=== PATIENT | male | born 1940 | race African-American/Black ===

== ENCOUNTER 2022-04-05 10:24 | Inpatient (IN) | payer MEDICARE ==
--- NOTE | 2022-04-05 11:26 | Emergency Department Report ---
HPI - General Chief Complaint: Weakness Time Seen by Provider: 04/05/22 11:14 - [facility] HPI: Room 3 The patient is a 2-year-old male presenting with a chief complaint of weakness. The patient's son states that the patient has become progressively weaker over the past week. He states the patient complains of weakness in both legs but greatest in the right lower extremity. The patient was able to ambulate under his own power 1 week ago but now it is unable to do so. The patient fell last night to the ground secondary to his weakness but did not lose consciousness. Patient also complains of bilateral upper extremity weakness which is equal. Patient denies dysarthria or dysphagia. The patient was told he had a history of irregular heartbeat and was placed on a blood thinner however when he ran out of medication he never got it refilled. The son does not certain of the name of the blood thinner ED Past Medical Hx - Past Medical History Previous Medical History?: Yes Hx Hypertension: Yes Hx of Cancer: Yes (prostate) Additional medical history: "Irregular heartbeat" - Surgical History Additional Surgical History: Retro-orbital biopsy (patient had fungal infection behind the optic nerve). Prostate surgery - Family History Family history: no significant - Social History Smoking Status: Former Smoker (None x10 years) Substance Use Type: None ED Review of Systems ROS: Stated complaint: UANBLE TO WALK Other details as noted in HPI Constitutional: malaise Eyes: denies: eye pain ENT: denies: throat pain Respiratory: denies: shortness of breath Cardiovascular: denies: chest pain Endocrine: no symptoms reported Gastrointestinal: denies: abdominal pain, nausea, vomiting Genitourinary: denies: dysuria Musculoskeletal: denies: back pain Neurological: weakness, paresthesias. denies: headache Physical Exam - Physical Exam Vital Signs: Vital Signs 04/05/22 10:35 Temperature 99.8 F H Pulse Rate 96 H Respiratory 15 Rate Blood Pressure 129/75 [Left] O2 Sat by Pulse 96 Oximetry Physical Exam: GENERAL: The patient is well-developed well-nourished male lying on stretcher not appearing to be in acute distress. [] HEENT: Normocephalic. Atraumatic. Extraocular motions are intact. Patient has moist mucous membranes. NECK: Supple. Trachea midline CHEST/LUNGS: Clear to auscultation. There is no respiratory distress noted. HEART/CARDIOVASCULAR: Irregularly irregular. There is tachycardia. There is no gallop rub or murmur. ABDOMEN: Abdomen is soft, nontender. Patient has normal bowel sounds. There is no abdominal distention. SKIN: There is no rash. There is no edema. There is no diaphoresis. NEURO: The patient is awake, alert, and oriented. The patient is cooperative. Cranial nerves II through XII grossly intact. Patient has decreased sensation to light touch of the right lower extremity. Equal sensation to light touch b ilateral upper extremities. The patient is able to hold either upper extremity at 45 degree angle for 10-second count. Patient is able to hold either lower extremity at 30 degree angle for 5-second count the patient has normal speech. GCS 15 NIHSS= 1 MUSCULOSKELETAL: There is no evidence of acute injury. ED Course Vital Signs 04/05/22 10:35 Temperature 99.8 F H Pulse Rate 96 H Respiratory 15 Rate Blood Pressure 129/75 [Left] O2 Sat by Pulse 96 Oximetry ED Medical Decision Making - Lab Data Result diagrams: 04/05/22 11:34 04/05/22 11:34 Laboratory Tests 04/05/22 04/05/22 04/05/22 11:34 11:34 11:34 WBC 9.7 RBC 4.49 Hgb 13.7 Hct 41.9 MCV 93 MCH 31 MCHC 33 RDW 12.6 L Plt Count 364 Lymph % (Auto) 11.9 L [place] % (Auto) 6.7 Eos % (Auto) 2.1 Baso % (Auto) 0.7 Lymph # (Auto) 1.2 [place] # (Auto) 0.6 Eos # (Auto) 0.2 Baso # (Auto) 0.1 Seg Neutrophils % 78.6 H Seg Neutrophils # 7.6 PT 14.5 INR 1.02 APTT 34.3 Sodium 134 L Potassium 4.0 Chloride 97.6 L Carbon Dioxide 25 Anion Gap 15 BUN 15 Creatinine 1.1 Estimated GFR > 60 BUN/Creatinine Ratio 14 Glucose 164 H Calcium 8.9 Total Bilirubin 0.80 AST 129 H ALT 81 H Alkaline Phosphatase 154 H Total Creatine Kinase CK-MB (CK-2) CK-MB (CK-2) Rel Index Troponin T < 0.010 Total Protein 7.4 Albumin 2.6 L Albumin/Globulin Ratio 0.5 TSH Free T4 04/05/22 04/05/22 11:34 11:34 WBC RBC Hgb Hct MCV MCH MCHC RDW Plt Count Lymph % (Auto) [place] % (Auto) Eos % (Auto) Baso % (Auto) Lymph # (Auto) [place] # (Auto) Eos # (Auto) Baso # (Auto) Seg Neutrophils % Seg Neutrophils # PT INR APTT Sodium Potassium Chloride Carbon Dioxide Anion Gap BUN Creatinine Estimated GFR BUN/Creatinine Ratio Glucose Calcium Total Bilirubin AST ALT Alkaline Phosphatase Total Creatine Kinase 77 CK-MB (CK-2) 1.1 CK-MB (CK-2) Rel Index 1.4 Troponin T Total Protein Albumin Albumin/Globulin Ratio TSH 1.550 Free T4 1.20 - EKG Data -: EKG Interpreted by Me EKG shows normal: axis Rate: tachycardia - EKG Data When compared to previous EKG there are: previous EKG unavailable Interpretation: other (A. fib with RVR at 115 bpm) - Radiology Data Radiology results: report reviewed (Chest x-ray, CT head), image reviewed (Chest x-ray, CT head) interpreted by me: Chest x-ray-no definite focal infiltrates, no pneumothorax [address] [address] Cat Scan Report Signed Patient: CARMEN BLANCHARD MR#: [id number] : 1940 Acct:[id number] Age/Sex: 82 / M ADM Date: 04/05/22 Loc: ED Attending Dr: Ordering Physician: DANIEL ANDRES MD Date of Service: 04/05/22 Procedure(s): CT head/brain wo con Accession Number(s): [id number] cc: DANIEL ANDRES MD CT head/brain wo con INDICATION / CLINICAL INFORMATION: 82 years Male; Frequent falls. TECHNIQUE: Routine CT head without contrast. All CT scans at this location are performed using CT dose reduction for ALARA by means of automated exposure control. COMPARISON: None. FINDINGS: BRAIN / INTRACRANIAL CONTENTS: No acute hemorrhage, mass effect, midline shift, hydrocephalus, or acute, large territorial infarct. Mild cerebral and cerebellar atrophy. There are mild areas of decreased attenuation in the white matter of the cerebral hemispheres. These are nonspecific findings and may be related to microangiopathy (hypertension, diabetes, atherosclerosis), given the patient's age. It might be difficult to evaluate for small areas of ischemia without diffusion imaging by MRI. CRANIOCERVICAL JUNCTION: No significant abnormality. ORBITS: No significant abnormality of visualized orbits. SINUSES / MASTOIDS: Mild mucosal thickening is identified in the left maxillary sinus. The remaining sinuses and mastoid air cells are clear. ADDITIONAL FINDINGS: Atherosclerotic disease is seen in the anterior and posterior circulation. IMPRESSION: 1. Mild volume loss and nonspecific chronic white matter changes. 2. Mild chronic left maxillary sinusitis. 3. No acute intracranial process identified. Signer Name: Darren Garnica Jr, MD Signed: 04/05/2022 1:08 PM Workstation Name: [id number] Transcribed By: TTR Dictated By: DARREN GARNICA JR, MD Electronically Authenticated By: DARREN GARNICA JR, MD Signed Date/Time: 04/05/22 1308 DD/ 1305 TD/TT: [facility] [address] [place] [address] XRay Report Signed Patient: CARMEN BLANCHARD MR#: [id number] : 1940 Acct:[id number] Age/Sex: 82 / M ADM Date: 04/05/22 Loc: ED Attending Dr: Ordering Physician: DANIEL ANDRES MD Date of Service: 04/05/22 Procedure(s): XR chest 1V ap Accession Number(s): [id number] cc: DANIEL ANDRES MD Fluoro Time In Minutes: CHEST 1 VIEW 04/05/2022 11:52 AM INDICATION / CLINICAL INFORMATION: Weakness. COMPARISON: None available. FINDINGS: SUPPORT DEVICES: None. HEART / MEDIASTINUM: No significant abnormality. LUNGS / PLEURA: Increased interstitial markings in the bilateral, right greater than left lung bases. No pneumothorax. ADDITIONAL FINDINGS: No significant additional findings. IMPRESSION: 1. Increased interstitial markings bilateral lung bases which nonspecific may represent atypical infectious process versus pulmonary edema versus interstitial lung disease. Signer Name: Mathew Matta DO Signed: 04/05/2022 12:28 PM Workstation Name: [id number] Transcribed By: NS Dictated By: MATHEW MATTA DO Electronically Authenticated By: MATHEW MATTA DO Signed Date/Time: 04/05/22 1228 DD/ TD/TT: - Differential Diagnosis A. fib not on anticoagulation, CVA, Critical care attestation.: If time is entered above; I have spent that time in minutes in the direct care of this critically ill patient, excluding procedure time. ED Disposition Clinical Impression: Atrial fibrillation, Right leg numbness, Weakness Disposition: ADMITTED INPATIENT Is pt being admited?: Yes Does the pt Need Aspirin: Yes Condition: Fair Time of Disposition: 13:24 (Care transferred to hospitalist (Dr. Farfan))
[2022-04-05 11:41] LABS: Basophils # (Auto) 0.1 K/mm3 (0.0-0.1); Basophils % (Auto) 0.7 % (0.0-1.8); Eosinophils # (Auto) 0.2 K/mm3 (0.0-0.4); Eosinophils % (Auto) 2.1 % (0.0-4.3); Hematocrit 41.9 % (35.5-45.6); Hemoglobin 13.7 gm/dl (11.8-15.2); Lymphocytes # (Auto) 1.2 K/mm3 (1.2-5.4); Lymphocytes % (Auto) 11.9 % (13.4-35.0); Mean Corpuscular HGB Conc 33 % (32-34); Mean Corpuscular Volume 93 fl (84-94); Monocytes # (Auto) 0.6 K/mm3 (0.0-0.8); Monocytes % (Auto) 6.7 % (0.0-7.3); Platelet Count 364 K/mm3 (140-440); Red Blood Count 4.49 M/mm3 (3.65-5.03); Red Cell Distribution Width 12.6 % (13.2-15.2)
[2022-04-05 11:53] LABS: INR 1.02 (0.87-1.13); Partial Thromboplastin Time 34.3 Sec. (24.2-36.6)
[2022-04-05 12:00] LABS: Creatine Kinase MB 1.1 ng/mL (0.0-4.0)
[2022-04-05 12:08] LABS: Alanine Aminotransferase 81 units/L (7-56); Albumin 2.6 g/dL (3.9-5); BUN/Creatinine Ratio 14; Blood Urea Nitrogen 15 mg/dL (9-20); Calcium 8.9 mg/dL (8.4-10.2); Hemolysis Index 11
[2022-04-05 12:13] LABS: Free T4 (Free Thyroxine) 1.2 ng/dL (0.76-1.46)
--- NOTE | 2022-04-05 12:33 | XRay Report ---
CHEST 1 VIEW 04/05/2022 11:52 AM INDICATION / CLINICAL INFORMATION: Weakness. COMPARISON: None available. FINDINGS: SUPPORT DEVICES: None. HEART / MEDIASTINUM: No significant abnormality. LUNGS / PLEURA: Increased interstitial markings in the bilateral, right greater than left lung bases. No pneumothorax. ADDITIONAL FINDINGS: No significant additional findings. IMPRESSION: 1. Increased interstitial markings bilateral lung bases which nonspecific may represent atypical infe ctious process versus pulmonary edema versus interstitial lung disease. Signer Name: Mathew Talley DO Signed: 04/05/2022 12:28 PM Workstation Name: [id number]
--- NOTE | 2022-04-05 13:12 | Cat Scan Report ---
CT head/brain wo con INDICATION / CLINICAL INFORMATION: 82 years Male; Frequent falls. TECHNIQUE: Routine CT head without contrast. All CT scans at this location are performed using CT dos e reduction for ALARA by means of automated exposure control. COMPARISON: None. FINDINGS: BRAIN / INTRACRANIAL CONTENTS: No acute hemorrhage, mass effect, midline shift, hydrocephalus, or acu te, large territorial infarct. Mild cerebral and cerebellar atrophy. There are mild areas of decreased attenuation in the white matter of the cerebral hemispheres. These are nonspecific findings and may be related to microangiopathy (hypertension, diabetes, atheroscleros is), given the patient's age. It might be difficult to evaluate for small areas of ischemia without d iffusion imaging by MRI. CRANIOCERVICAL JUNCTION: No significant abnormality. ORBITS: No significant abnormality of visualized orbits. SINUSES / MASTOIDS: Mild mucosal thickening is identified in the left maxillary sinus. The remaining sinuses and mastoid air cells are clear. ADDITIONAL FINDINGS: Atherosclerotic disease is seen in the anterior and posterior circulation. IMPRESSION: 1. Mild volume loss and nonspecific chronic white matter changes. 2. Mild chronic left maxillary sinusitis. 3. No acute intracranial process identified. Signer Name: Darren Garnica Jr, MD Signed: 04/05/2022 1:08 PM Workstation Name: [id number]
[2022-04-05] MEDS ORDERED: ASPIRIN 325 MG TAB PO ONE (13:23)
[2022-04-05] MEDS ORDERED: ACETAMINOPHEN 325 MG TAB PO PRN (13:34)
[2022-04-05] MEDS ORDERED: ALBUTEROL 2.5 MG/3 ML NEBU IH PRN (13:34)
[2022-04-05] MEDS ORDERED: ONDANSETRON 4 MG/2 ML INJ IV PRN (13:34)
[2022-04-05] MEDS ORDERED: HYDROmorphone 0.5 MG/0.5 ML INJ IV PRN (13:34)
[2022-04-05] MEDS ORDERED: METOCLOPRAMIDE 10 MG TAB PO PRN (13:34)
[2022-04-05] MEDS ORDERED: MAGNESIUM HYDROXIDE (MOM) ORAL LIQD UDC PO PRN (13:34)
[2022-04-05] MEDS ORDERED: PROMETHAZINE 25 MG RECT SUPP PR PRN (13:34)
[2022-04-05] MEDS ORDERED: oxyCODONE /ACETAMINOPHEN 5-325MG TAB PO PRN (13:34)
--- NOTE | 2022-04-05 13:37 | History and Physical Report ---
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 Patient has diminished cognition and is unable to provide detailed history. Patient history brought by EMS staff, ED staff, as well as the patient's son was at bedside during exam and interview. As per son the patient has experienced progressive weakness over the past 1 month with acutely worsening symptoms over the past week. Patient has experienced right-sided weakness with inability to ambulate without falling. EMS was notified and upon arrival the patient was found to be in distress with a focal neurologic deficit. A code stroke was called and the patient was transported to [facility] for further care and evaluation of the aforementioned symptoms. The patient was seen and evaluated emergency department. All lab and imaging studies reviewed. Patient found to have a focal neurologic deficit with symptoms consistent with CVA. The patient admitted to telemetry due to increased risk of worsening symptoms and for medical stabilization. Patient initiated on CVA protocol. No reports of fever, chills, chest pain, palpitation, adductive cough, skin rash, recent contact, known exposure to COVID-19. No prior admission for review. No medication listed at time of admission for reconciliation. Advanced care planning conducted in ED. Past History Past Medical History: atrial fib, cancer, hypertension, other (See HPI) Past Surgical History: Other (Prostate surgery, orbital biopsy) Social history: , lives with family. denies: smoking, alcohol abuse, prescription drug abuse Family history: hypertension Medications and Allergies Allergies Allergy/AdvReac Type Severity Reaction Status Date / Time No Known Allergies Allergy Verified 04/05/22 10:38 Active Meds: Active Medications Acetaminophen (Acetaminophen 325 Mg Tab) 650 mg PO Q4H PRN PRN Reason: Pain, Mild (1-3) Albuterol (Albuterol 2.5 Mg/3 Ml Nebu) 2.5 mg IH Q3HRT PRN PRN Reason: Shortness Of Breath Atorvastatin Calcium (Atorvastatin 40 Mg Tab) 40 mg PO QHS MARILU Bisacodyl (Bisacodyl 10 Mg Rect Supp) 10 mg NH QDAY PRN PRN Reason: Constipation Hydromorphone HCl (Hydromorphone 0.5 Mg/0.5 Ml Inj) 0.5 mg IV Q23H PRN PRN Reason: Pain , Severe (7-10) Magnesium Hydroxide (Magnesium Hydroxide (Mom) Oral Liqd Udc) 30 ml PO Q4H PRN PRN Reason: Constipation Metoclopramide HCl (Metoclopramide 10 Mg Tab) 10 mg PO Q6H PRN PRN Reason: Nausea And Vomiting Ondansetron HCl (Ondansetron 4 Mg/2 Ml Inj) 4 mg IV Q8H PRN PRN Reason: Nausea And Vomiting Oxycodone/Acetaminophen (Oxycodone /Acetaminophen 5-325mg Tab) 1 tab PO Q16H PRN PRN Reason: Pain, Moderate (4-6) Promethazine HCl (Promethazine 25 Mg Rect Supp) 25 mg NH Q6H PRN PRN Reason: Nausea And Vomiting Sodium Chloride (Sodium Chloride 0.9% 10 Ml Flush Syringe) 10 ml INJ PRN PRN PRN Reason: LINE FLUSH Review of Systems ROS unobtainable: due to mental status Exam - Constitutional Vitals: Temp Pulse Resp BP Pulse Ox 99.8 F H 96 H 14 129/75 98 04/05/22 10:35 04/05/22 10:35 04/05/22 12:52 04/05/22 10:35 04/05/22 12:52 General appearance: Present: mild distress - EENT Eyes: Present: PERRL ENT: clear oral mucosa, hearing decreased - Neck Neck: Present: supple, normal ROM - Respiratory Respiratory effort: normal Respiratory: bilateral: diminished - Cardiovascular Rhythm: irregularly irregular - Extremities Extremities: pulses symmetrical, No edema Peripheral Pulses: within normal limits - Abdominal General gastrointestinal: Present: soft, non-tender, non-distended, normal bowel sounds Male genitourinary: Present: normal - Integumentary Integumentary: Present: clear, warm, dry - Musculoskeletal Musculoskeletal: right sided weakness - Psychiatric Psychiatric: no intact judgment & insight, no memory intact, no cooperative - Neurologic Neurologic: CNII-XII intact, moves all extremities, no gait normal HEART Score - HEART Score Troponin: Troponin T < 0.010 ng/mL (0.00-0.029) 04/05/22 11:34 Results - Labs CBC & Chem 7: 04/05/22 11:34 04/05/22 11:34 Labs: Abnormal lab results 04/05/22 04/05/22 Range/Units 11:34 11:34 RDW 12.6 L (13.2-15.2) % Lymph % (Auto) 11.9 L (13.4-35.0) % Seg Neutrophils % 78.6 H (40.0-70.0) % Sodium 134 L (137-145) mmol/L Chloride 97.6 L (98-107) mmol/L Glucose 164 H (75-100) mg/dL AST 129 H (5-40) units/L ALT 81 H (7-56) units/L Alkaline Phosphatase 154 H (35-129) units/L Albumin 2.6 L (3.9-5) g/dL Assessment and Plan - Patient Problems (1) CVA (cerebral vascular accident) Current Visit: Yes Status: Acute Plan to address problem: CVA protocol: Antiplatelet therapy, CT scan head, physical therapy consulted, Occupational Therapy consulted, speech therapy consulted, statin therapy, echocardiogram, carotid Doppler, (2) Paroxysmal atrial fibrillation Current Visit: Yes Status: Acute Plan to address problem: Supportive care, patient noncompliant with therapeutic anticoagulation. Risk- benefit discussed.. (3) Hypertension Current Visit: Yes Status: Acute Qualifiers: Hypertension type: primary hypertension Qualified Code(s): I10 - Essential (primary) hypertension Plan to address problem: Monitor blood pressure every shift, continue medical management (4) Prostate cancer Current Visit: Yes Status: Acute Plan to address problem: Outpatient oncology follow-up. Outpatient urology follow-up. (5) DVT prophylaxis Current Visit: Yes Status: Acute Plan to address problem: SCD to bilateral lower extremities while in bed (6) Advance care planning Current Visit: Yes Status: Acute Plan to address problem: Disease education data, care plan discussed, diagnoses discussed, prognosis discussed, patient is full code. Patient family knowledges understanding and agreement with care plan, +30 minutes. (7) Preventative health care Current Visit: Yes Status: Acute Plan to address problem: Patient family counseled regarding risk factor reduction, home safety, outpatient follow-up with primary care physician for all age and risk factor appropriate screening test. +30 minutes.
[2022-04-05 14:52] LABS: Bacteria,Urine 1+ /HPF (Negative); Mucus,Urine FEW /HPF
[2022-04-05 14:56] LABS: Bilirubin,Urine Small (Negative); Blood,Urine Trace (Negative); Color,Urine Yellow (Yellow); PH,Urine 7.5 (5.0-7.0)
--- NOTE | 2022-04-05 16:45 | Vascular Lab Report ---
DUPLEX DOPPLER ULTRASOUND CAROTID, BILATERAL INDICATION / CLINICAL INFORMATION: stroke. COMPARISON: None available. FINDINGS: RIGHT CAROTID: Moderate carotid bifurcation and proximal ICA atherosclerosis. - PLAQUE ESTIMATE (%): > 50% - CCA velocity: 70 cm/sec. - ICA peak systolic velocity: 233 cm/sec. - ICA/CCA PSV Ratio: 3.33 Right Vertebral Artery: Antegrade flow. LEFT CAROTID: Mild/moderate carotid bifurcation and proximal ICA atherosclerosis. - PLAQUE ESTIMATE: < 50% - CCA velocity: 101 cm/sec. - ICA peak systolic velocity: 95 cm/sec. - ICA/CCA PSV Ratio: 0.94 Left Vertebral Artery: Antegrade flow. IMPRESSION: 1. Right Internal Carotid Artery: Approximately 70% diameter stenosis. Complete characterization by C TA neck may be warranted. 2. Left Internal Carotid Artery: Less than 50% diameter stenosis. Velocity criteria are extrapolated from diameter data as defined by the Society of Radiologists in Ul trasound Consensus Conference, Radiology 2003; 229;340-346. NO STENOSIS (NORMAL) * Plaque = none; ICA PSV < 125 cm/sec; ICA/CCA PSV Ratio < 2.0 <50% STENOSIS * Plaque < 50%; ICA PSV < 125 cm/sec; ICA/CCA PSV Ratio < 2.0 50-69% STENOSIS * Plaque > 50%; ICA PSV = 125-230 cm/sec; ICA/CCA PSV Ratio = 2.0-4.0 >70% BUT <100% STENOSIS * Plaque > 50%; ICA PSV > 230 cm/sec; ICA/CCA PSV Ratio > 4.0 NEAR OCCLUSION * Plaque = visible lumen; ICA PSV = high/low/none; ICA/CCA PSV Ratio = variable TOTAL OCCLUSION * Plaque = no lumen; ICA PSV = none; ICA/CCA PSV Ratio = N/A Signer Name: Orlando Mina MD Signed: 04/05/2022 4:41 PM Workstation Name: [id number]
--- NOTE | 2022-04-05 16:55 | Electrocardiograph Report ---
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
--- NOTE | 2022-04-06 10:48 | Electrocardiograph Report ---
[facility] Test Date: 2022-04-06 Test Time: 07:33:24 Pat Name: CARMEN BLANCHARD Department: Room: A487 1 Gender: M Manager Assembly: ZAYNAB : 1940 Requested By: DANIEL ANDRES Order Number: [id number] Reading MD: Alejandro Murillo Measurements Intervals [place] Rate: 103 P: [place]: QRS: 27 QRSD: 73 T: 31 QT: 350 QTc: 458 Interpretive Statements Atrial fibrillation Compared to ECG 04/05/2022 10:51:13 No significant changes Electronically Signed On 04-06-2022 10:47:53 EDT by Alejandro Murillo
--- NOTE | 2022-04-06 11:44 | Progress Note ---
Assessment and Plan Assessment and plan: 82 YO Male with Vascular Dementia, Cerebral Atherosclerosis, CaP, Atrial Fib not currently on therapeutic anticoagulation, HTN presents to ED for evaluation of progressive weakness over the past 1 month. Patient has experienced right- sided weakness with inability to ambulate without falling. Acute CVA Paroxysmal atrial fibrillation Hypertension Prostate cancer 04/06/2022. Follow-up echocardiogram and MRI. Neurology evaluation pending. PT/OT/ST. History Interval history: No new issues overnight Hospitalist Physical - Constitutional Vitals: Temp Pulse Resp BP Pulse Ox 97.9 F 97 H 16 103/65 96 04/06/22 07:48 04/06/22 07:48 04/06/22 07:48 04/06/22 07:48 04/06/22 09:11 General appearance: Present: mild distress - EENT Eyes: Present: PERRL, EOM intact ENT: hearing intact, clear oral mucosa, dentition normal - Neck Neck: Present: supple, normal ROM - Respiratory Respiratory effort: normal Respiratory: bilateral: CTA - Cardiovascular Rhythm: regular Heart Sounds: Present: S1 & S2. Absent: gallop, rub - Extremities Extremities: no ischemia, No edema, Full ROM - Abdominal General gastrointestinal: soft, non-tender, non-distended, normal bowel sounds - Integumentary Integumentary: Present: clear, warm, dry - Neurologic Neurologic: CNII-XII intact, moves all extremities HEART Score - HEART Score Troponin: Troponin T < 0.010 ng/mL (0.00-0.029) 04/05/22 11:34 Results - Labs CBC & Chem 7: 04/05/22 11:34 04/05/22 11:34 Labs: Laboratory Last Values WBC 9.7 K/mm3 (4.5-11.0) 04/05/22 11:34 RBC 4.49 M/mm3 (3.65-5.03) 04/05/22 11:34 Hgb 13.7 gm/dl (11.8-15.2) 04/05/22 11:34 Hct 41.9 % (35.5-45.6) 04/05/22 11:34 MCV 93 fl (84-94) 04/05/22 11:34 MCH 31 pg (28-32) 04/05/22 11:34 MCHC 33 % (32-34) 04/05/22 11:34 RDW 12.6 % (13.2-15.2) L 04/05/22 11:34 Plt Count 364 K/mm3 (140-440) 04/05/22 11:34 Lymph % (Auto) 11.9 % (13.4-35.0) L 04/05/22 11:34 [place] % (Auto) 6.7 % (0.0-7.3) 04/05/22 11:34 Eos % (Auto) 2.1 % (0.0-4.3) 04/05/22 11:34 Baso % (Auto) 0.7 % (0.0-1.8) 04/05/22 11:34 Lymph # (Auto) 1.2 K/mm3 (1.2-5.4) 04/05/22 11:34 [place] # (Auto) 0.6 K/mm3 (0.0-0.8) 04/05/22 11:34 Eos # (Auto) 0.2 K/mm3 (0.0-0.4) 04/05/22 11:34 Baso # (Auto) 0.1 K/mm3 (0.0-0.1) 04/05/22 11:34 Seg Neutrophils % 78.6 % (40.0-70.0) H 04/05/22 11:34 Seg Neutrophils # 7.6 K/mm3 (1.8-7.7) 04/05/22 11:34 PT 14.5 Sec. (12.2-14.9) 04/05/22 11:34 INR 1.02 (0.87-1.13) 04/05/22 11:34 APTT 34.3 Sec. (24.2-36.6) 04/05/22 11:34 Sodium 134 mmol/L (137-145) L 04/05/22 11:34 Potassium 4.0 mmol/L (3.6-5.0) 04/05/22 11:34 Chloride 97.6 mmol/L (98-107) L 04/05/22 11:34 Carbon Dioxide 25 mmol/L (22-30) 04/05/22 11:34 Anion Gap 15 mmol/L 04/05/22 11:34 BUN 15 mg/dL (9-20) 04/05/22 11:34 Creatinine 1.1 mg/dL (0.8-1.3) 04/05/22 11:34 Estimated GFR > 60 ml/min 04/05/22 11:34 BUN/Creatinine Ratio 14 % 04/05/22 11:34 Glucose 164 mg/dL (75-100) H 04/05/22 11:34 Calcium 8.9 mg/dL (8.4-10.2) 04/05/22 11:34 Total Bilirubin 0.80 mg/dL (0.1-1.2) 04/05/22 11:34 AST 129 units/L (5-40) H 04/05/22 11:34 ALT 81 units/L (7-56) H 04/05/22 11:34 Alkaline Phosphatase 154 units/L (35-129) H 04/05/22 11:34 Total Creatine Kinase 77 units/L (55-170) 04/05/22 11:34 CK-MB (CK-2) 1.1 ng/mL (0.0-4.0) 04/05/22 11:34 CK-MB (CK-2) Rel Index 1.4 (0-4) 04/05/22 11:34 Troponin T < 0.010 ng/mL (0.00-0.029) 04/05/22 11:34 Total Protein 7.4 g/dL (6.3-8.2) 04/05/22 11:34 Albumin 2.6 g/dL (3.9-5) L 04/05/22 11:34 Albumin/Globulin Ratio 0.5 % 04/05/22 11:34 TSH 1.550 mlU/mL (0.270-4.200) 04/05/22 11:34 Free T4 1.20 ng/dL (0.76-1.46) 04/05/22 11:34 Urine Color Yellow (Yellow) 04/05/22 13:42 Urine Turbidity Cloudy (Clear) 04/05/22 13:42 Urine pH 7.5 (5.0-7.0) H 04/05/22 13:42 Ur Specific [place] 1.010 (1.003-1.030) 04/05/22 13:42 Urine Protein 30 mg/dl mg/dL (Negative) 04/05/22 13:42 Urine Glucose (UA) Negative mg/dL (Negative) 04/05/22 13:42 Urine Ketones Negative mg/dL (Negative) 04/05/22 13:42 Urine Blood Trace (Negative) 04/05/22 13:42 Urine Nitrite Negative (Negative) 04/05/22 13:42 Ur Reducing Substances Not Reportable 04/05/22 13:42 Urine Bilirubin Small (Negative) 04/05/22 13:42 Urine Ictotest Not Reportable 04/05/22 13:42 Urine Urobilinogen 2.0 mg/dL (<2.0) 04/05/22 13:42 Ur Leukocyte Esterase Trace (Negative) 04/05/22 13:42 Urine WBC (Auto) 6.0 /HPF (0.0-6.0) 04/05/22 13:42 Urine RBC (Auto) 2.0 /HPF (0.0-6.0) 04/05/22 13:42 Urine Bacteria (Auto) 1+ /HPF (Negative) 04/05/22 13:42 Urine Mucus Few /HPF 04/05/22 13:42 Urine Yeast (Budding) 3+ /HPF 04/05/22 13:42 Hernadez/IV: Voiding Method Urinal Active Medications - Current Medications Current Medications: Generic Name Dose Route Start Last Admin Trade Name Freq PRN Reason Stop Dose Admin Acetaminophen 650 mg 04/05/22 13:34 Acetaminophen 325 Mg Tab PO Q4H PRN Pain, Mild (1-3) Albuterol 2.5 mg 04/05/22 13:34 Albuterol 2.5 Mg/3 Ml Nebu IH Q3HRT PRN Shortness Of Breath Atorvastatin Calcium 40 mg 04/05/22 22:00 04/05/22 22:26 Atorvastatin 40 Mg Tab PO 40 mg QHS MARILU Administration Bisacodyl 10 mg 04/05/22 13:34 Bisacodyl 10 Mg Rect Supp [place] QDAY PRN Constipation Hydromorphone HCl 0.5 mg 04/05/22 13:34 Hydromorphone 0.5 Mg/0.5 Ml Inj IV Q23H PRN Pain , Severe (7-10) Magnesium Hydroxide 30 ml 04/05/22 13:34 Magnesium Hydroxide (Mom) Oral Liqd Udc PO Q4H PRN Constipation Metoclopramide HCl 10 mg 04/05/22 13:34 Metoclopramide 10 Mg Tab PO Q6H PRN Nausea And Vomiting Ondansetron HCl 4 mg 04/05/22 13:34 Ondansetron 4 Mg/2 Ml Inj IV Q8H PRN Nausea And Vomiting Oxycodone/Acetaminophen 1 tab 04/05/22 13:34 Oxycodone /Acetaminophen 5-325mg Tab PO Q16H PRN Pain, Moderate (4-6) Promethazine HCl 25 mg 04/05/22 13:34 Promethazine 25 Mg Rect Supp [place] Q6H PRN Nausea And Vomiting Sodium Chloride 10 ml 04/05/22 13:34 04/05/22 22:26 Sodium Chloride 0.9% 10 Ml Flush Syringe IV 10 ml PRN PRN Administration LINE FLUSH
--- NOTE | 2022-04-06 14:52 | Consultation ---
History of Present Illness Consult date: 04/06/22 Reason for Consult: Weakness Chief complaint: Weakness History of present illness: 82 yo male with afib (on eliquis), htn, vascular dementia, cancer, who presents secondary to "progressive weakness over the past 1 month with exacerbation of weakness over the past 1 week. Per ED note, pt is noted with right-sided weak ness and has suffered some falls. Concern is raised in the ED for a possible CVA and patient is admitted for further workup. Patient is noted with limited speech at present and is not able to give a clinical history. Past History Past Medical History: atrial fib, cancer, hypertension, other (See HPI) Past Surgical History: Other (Prostate surgery, orbital biopsy) Social history: , lives with family. denies: smoking, alcohol abuse, prescription drug abuse Family history: hypertension Medications and Allergies Allergies Allergy/AdvReac Type Severity Reaction Status Date / Time No Known Allergies Allergy Verified 04/05/22 10:38 Active Meds: Active Medications Acetaminophen (Acetaminophen 325 Mg Tab) 650 mg PO Q4H PRN PRN Reason: Pain, Mild (1-3) Albuterol (Albuterol 2.5 Mg/3 Ml Nebu) 2.5 mg IH Q3HRT PRN PRN Reason: Shortness Of Breath Atorvastatin Calcium (Atorvastatin 40 Mg Tab) 40 mg PO QHS MARILU Last Admin: 04/05/22 22:26 Dose: 40 mg Bisacodyl (Bisacodyl 10 Mg Rect Supp) 10 mg IA QDAY PRN PRN Reason: Constipation Hydromorphone HCl (Hydromorphone 0.5 Mg/0.5 Ml Inj) 0.5 mg IV Q23H PRN PRN Reason: Pain , Severe (7-10) Magnesium Hydroxide (Magnesium Hydroxide (Mom) Oral Liqd Udc) 30 ml PO Q4H PRN PRN Reason: Constipation Metoclopramide HCl (Metoclopramide 10 Mg Tab) 10 mg PO Q6H PRN PRN Reason: Nausea And Vomiting Ondansetron HCl (Ondansetron 4 Mg/2 Ml Inj) 4 mg IV Q8H PRN PRN Reason: Nausea And Vomiting Oxycodone/Acetaminophen (Oxycodone /Acetaminophen 5-325mg Tab) 1 tab PO Q16H PRN PRN Reason: Pain, Moderate (4-6) Promethazine HCl (Promethazine 25 Mg Rect Supp) 25 mg IA Q6H PRN PRN Reason: Nausea And Vomiting Sodium Chloride (Sodium Chloride 0.9% 10 Ml Flush Syringe) 10 ml IV PRN PRN PRN Reason: LINE FLUSH Last Admin: 04/05/22 22:26 Dose: 10 ml Review of Systems ROS unobtainable: due to mental status Physical Examination - Vital Signs Vital Signs: Vital Signs Temp Pulse Resp BP Pulse Ox 99.8 F H 96 H 15 129/75 96 04/05/22 10:35 04/05/22 10:35 04/05/22 10:35 04/05/22 10:35 04/05/22 10:35 - Physical Exam Narrative exam: Gen: nad; Head: normocephalic; Eyes: no gaze deviation; no ptosis; ENT: normal vocalization; CVS: warm and well-perfused; Pulm: no respiratory distress; GI: appears non-distended; Ext: no cyanosis appreciated at distal extremities; Skin: no acute rash at distal extremities; Heme: no pathologic ecchymosis appreciated at distal extremities; Neuro: alert, oriented to name, not age, month; no dysarthria, moderate aphasia (vs language barrier), CN 2 - visual gómez appear grossly intact w/ visual tracking noted, CN 3, 4, 6 - EOMI, CN 5,7 - blinks spontaneously, CN 8 - hearing grossly intact, CN 9, 10, 11, 12 - pt cannot cooperate due to aphasia or language barrier; Motor - at least 3/5 at all exts; Sensory - moves all exts to tactile stimuli, Cerebellar - pt cannot cooperate due to aphasia or language barrier, Gait - deferred secondary to fall risk; NIHSS (1a.) Level of Consciousness:0 (1b.) LOC Questions:2 (1c.) LOC Commands:1 (2.) Best Gaze:0 (3.) Visual:1 (4.) Facial Palsy:0 (5a.) Motor Arm, Left:1 (5b.) Motor Arm, Right:1 (6a.) Motor Leg, Left:1 (6b.) Motor Leg, Right:1 (7.) Limb Ataxia:0 (8.) Sensory:0 (9.) Best Language:2 (10.) Dysarthria:0 (11.) Extinction and Inattention:1 NIHSS Total Score: 11 Results - Laboratory Findings CBC and BMP: 04/05/22 11:34 04/05/22 11:34 Abnormal Lab Findings: Abnormal Labs 04/05/22 04/05/22 04/05/22 11:34 11:34 13:42 RDW 12.6 L Lymph % (Auto) 11.9 L Seg Neutrophils % 78.6 H Sodium 134 L Chloride 97.6 L Glucose 164 H AST 129 H ALT 81 H Alkaline Phosphatase 154 H Albumin 2.6 L Urine pH 7.5 H Assessment and Plan 82 yo male with afib (on eliquis), htn, vascular dementia, cancer, who presents secondary to "progressive weakness over the past 1 month with exacerbation of weakness over the past 1 week. Per ED note, pt is noted with right-sided weakness and has suffered some falls. Concern is raised in the ED for a possible CVA and patient is admitted for further workup. 1. CVA (acute on subacute/chronic) - awaiting mr brain; continue eliquis / statin therapy for secondary stroke prophylaxis; pt/ot/st/swallow evaluation/monitoring; further workup based on mri findings. 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 3. Unsteady Gait w/ Falls (initial encounter) - pt/ot evaluation/monitoring for fall risk assesment especially in the setting of anticoagulation use. 4. Generalized Weakness - serologies ordered. 5. If imaging and labs are unremarkable, recommend further workup with transfer to a facility with bedside neurology. Erich Peter MD Neurology [id number]
--- NOTE | 2022-04-07 00:18 | Cat Scan Report ---
CTA NECK WITH CONTRAST 04/06/2022 INDICATION / CLINICAL INFORMATION: ICA stenosis, possible stroke. COMPARISON: None. TECHNIQUE: Routine CTA of the neck is performed. 3-D/MIP reformats were postprocessed. Percentage st enosis is determined by direct quantitative measurements of diseased internal carotid artery diameter compared with normal distal internal carotid artery reference segments or by criteria similar to ENRRIQUE CET where applicable. All CT scans at this location are performed using CT dose reduction for ALARA b y means of automated exposure control. CONTRAST: 100 ml of Omnipaque 350 FINDINGS: Carotid bifurcations: Right bifurcation, 70% stenosis. Left bifurcation, no evidence of stenosis. Carotid arteries: No significant abnormality. Cervical vertebral arteries: No significant abnormality. Aortic arch: No significant abnormality. None. 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
--- NOTE | 2022-04-07 00:20 | Cat Scan Report ---
CTA HEAD WITH CONTRAST 04/06/2022 HISTORY: ICA stenosis, possible stroke. COMPARISON: None. TECHNIQUE: All CT scans at this location are performed using CT dose reduction for ALARA by means of automated exposure control.. 3-D/MIP reformats postprocessed. Percentage stenosis is determined by d irect quantitative measurements of diseased internal carotid artery diameter compared with normal dis jamison internal carotid artery reference segments or by criteria similar to NASCET where applicable. CONTRAST: 100 ml of Isovue 370 FINDINGS: CTA HEAD: Intracranial vertebral arteries: No significant abnormality. Basilar artery: No significant abnormality. Posterior cerebral arteries: No significant abnormality. Intracranial internal carotid arteries: No significant abnormality. Anterior cerebral arteries: No significant abnormality. Middle cerebral arteries: No significant abnormality. Dural venous sinuses:Not optimally opacified. No significant abnormality. Additional findings: None. IMPRESSION: 1. No significant abnormality. Signer Name: Karan Patton MD Signed: 04/07/2022 12:15 AM Workstation Name: [id number]
[2022-04-07 06:22] LABS: Basophils % (Auto) 0.3 % (0.0-1.8); Eosinophils # (Auto) 0.2 K/mm3 (0.0-0.4); Eosinophils % (Auto) 1.5 % (0.0-4.3); Hematocrit 39.3 % (35.5-45.6); Hemoglobin 13.6 gm/dl (11.8-15.2); Lymphocytes # (Auto) 1.3 K/mm3 (1.2-5.4); Lymphocytes % (Auto) 12.3 % (13.4-35.0); Mean Corpuscular HGB Conc 35 % (32-34); Mean Corpuscular Volume 92 fl (84-94); Monocytes # (Auto) 0.9 K/mm3 (0.0-0.8); Monocytes % (Auto) 8.4 % (0.0-7.3); Platelet Count 362 K/mm3 (140-440); Red Cell Distribution Width 12.5 % (13.2-15.2)
[2022-04-07 06:34] LABS: Calcium 8.9 mg/dL (8.4-10.2)
--- NOTE | 2022-04-07 10:40 | Progress Note ---
Assessment and Plan Assessment and plan: 82 YO Male with Vascular Dementia, Cerebral Atherosclerosis, CaP, Atrial Fib not currently on therapeutic anticoagulation, HTN presents to ED for evaluation of progressive weakness over the past 1 month. Patient has experienced right- sided weakness with inability to ambulate without falling. Acute CVA Paroxysmal atrial fibrillation Hypertension Prostate cancer 04/06/2022. Follow-up echocardiogram and MRI. Neurology evaluation pending. PT/OT/ST. 04/07/2022. Neurology consulted and recommends MRI of brain. Continue Eliquis and statin therapy for paroxysmal atrial fibrillation and secondary prevention. PT recommends acute rehab but family wants to take patient home. pt/ot evaluation/monitoring for fall risk assesment especially in the setting of anticoagulation use. I have had discussion with PT to ensure safe discharge home History Interval history: No new issues overnight Hospitalist Physical - Constitutional Vitals: Temp Pulse Resp BP Pulse Ox 97.4 F L 98 H 16 101/55 95 04/07/22 07:12 04/07/22 07:12 04/07/22 03:27 04/07/22 07:12 04/07/22 07:12 General appearance: Present: mild distress - EENT Eyes: Present: PERRL, EOM intact ENT: hearing intact, clear oral mucosa, dentition normal - Neck Neck: Present: supple, normal ROM - Respiratory Respiratory effort: normal Respiratory: bilateral: CTA - Cardiovascular Rhythm: regular Heart Sounds: Present: S1 & S2. Absent: gallop, rub - Extremities Extremities: no ischemia, No edema, Full ROM - Abdominal General gastrointestinal: soft, non-tender, non-distended, normal bowel sounds - Integumentary Integumentary: Present: clear, warm, dry - Neurologic Neurologic: CNII-XII intact, moves all extremities HEART Score - HEART Score Troponin: Troponin T < 0.010 ng/mL (0.00-0.029) 04/05/22 11:34 Results - Labs CBC & Chem 7: 04/07/22 05:43 04/07/22 05:43 Labs: Laboratory Last Values WBC 10.7 K/mm3 (4.5-11.0) 04/07/22 05:43 RBC 4.30 M/mm3 (3.65-5.03) 04/07/22 05:43 Hgb 13.6 gm/dl (11.8-15.2) 04/07/22 05:43 Hct 39.3 % (35.5-45.6) 04/07/22 05:43 MCV 92 fl (84-94) 04/07/22 05:43 MCH 32 pg (28-32) 04/07/22 05:43 MCHC 35 % (32-34) H 04/07/22 05:43 RDW 12.5 % (13.2-15.2) L 04/07/22 05:43 Plt Count 362 K/mm3 (140-440) 04/07/22 05:43 Lymph % (Auto) 12.3 % (13.4-35.0) L 04/07/22 05:43 [place] % (Auto) 8.4 % (0.0-7.3) H 04/07/22 05:43 Eos % (Auto) 1.5 % (0.0-4.3) 04/07/22 05:43 Baso % (Auto) 0.3 % (0.0-1.8) 04/07/22 05:43 Lymph # (Auto) 1.3 K/mm3 (1.2-5.4) 04/07/22 05:43 [place] # (Auto) 0.9 K/mm3 (0.0-0.8) H 04/07/22 05:43 Eos # (Auto) 0.2 K/mm3 (0.0-0.4) 04/07/22 05:43 Baso # (Auto) 0.0 K/mm3 (0.0-0.1) 04/07/22 05:43 Seg Neutrophils % 77.5 % (40.0-70.0) H 04/07/22 05:43 Seg Neutrophils # 8.3 K/mm3 (1.8-7.7) H 04/07/22 05:43 PT 14.5 Sec. (12.2-14.9) 04/05/22 11:34 INR 1.02 (0.87-1.13) 04/05/22 11:34 APTT 34.3 Sec. (24.2-36.6) 04/05/22 11:34 Sodium 134 mmol/L (137-145) L 04/07/22 05:43 Potassium 4.0 mmol/L (3.6-5.0) 04/07/22 05:43 Chloride 97.5 mmol/L (98-107) L 04/07/22 05:43 Carbon Dioxide 26 mmol/L (22-30) 04/07/22 05:43 Anion Gap 15 mmol/L 04/07/22 05:43 BUN 14 mg/dL (9-20) 04/07/22 05:43 Creatinine 1.2 mg/dL (0.8-1.3) 04/07/22 05:43 Estimated GFR 58 ml/min 04/07/22 05:43 BUN/Creatinine Ratio 12 % 04/07/22 05:43 Glucose 120 mg/dL (75-100) H 04/07/22 05:43 Calcium 8.9 mg/dL (8.4-10.2) 04/07/22 05:43 Total Bilirubin 0.80 mg/dL (0.1-1.2) 04/05/22 11:34 AST 129 units/L (5-40) H 04/05/22 11:34 ALT 81 units/L (7-56) H 04/05/22 11:34 Alkaline Phosphatase 154 units/L (35-129) H 04/05/22 11:34 Total Creatine Kinase 77 units/L (55-170) 04/05/22 11:34 CK-MB (CK-2) 1.1 ng/mL (0.0-4.0) 04/05/22 11:34 CK-MB (CK-2) Rel Index 1.4 (0-4) 04/05/22 11:34 Troponin T < 0.010 ng/mL (0.00-0.029) 04/05/22 11:34 Total Protein 7.4 g/dL (6.3-8.2) 04/05/22 11:34 Albumin 2.6 g/dL (3.9-5) L 04/05/22 11:34 Albumin/Globulin Ratio 0.5 % 04/05/22 11:34 Prealbumin 0.060 g/L (0.200-0.400) L 04/06/22 17:58 Vitamin B12 1003 pg/mL (211-911) H 04/06/22 17:58 Folate 12.75 ng/mL (7.3-26.0) 04/06/22 17:58 TSH 2.440 mlU/mL (0.270-4.200) 04/06/22 17:58 Free T4 1.20 ng/dL (0.76-1.46) 04/05/22 11:34 Urine Color Yellow (Yellow) 04/05/22 13:42 Urine Turbidity Cloudy (Clear) 04/05/22 13:42 Urine pH 7.5 (5.0-7.0) H 04/05/22 13:42 Ur Specific [place] 1.010 (1.003-1.030) 04/05/22 13:42 Urine Protein 30 mg/dl mg/dL (Negative) 04/05/22 13:42 Urine Glucose (UA) Negative mg/dL (Negative) 04/05/22 13:42 Urine Ketones Negative mg/dL (Negative) 04/05/22 13:42 Urine Blood Trace (Negative) 04/05/22 13:42 Urine Nitrite Negative (Negative) 04/05/22 13:42 Ur Reducing Substances Not Reportable 04/05/22 13:42 Urine Bilirubin Small (Negative) 04/05/22 13:42 Urine Ictotest Not Reportable 04/05/22 13:42 Urine Urobilinogen 2.0 mg/dL (<2.0) 04/05/22 13:42 Ur Leukocyte Esterase Trace (Negative) 04/05/22 13:42 Urine WBC (Auto) 6.0 /HPF (0.0-6.0) 04/05/22 13:42 Urine RBC (Auto) 2.0 /HPF (0.0-6.0) 04/05/22 13:42 Urine Bacteria (Auto) 1+ /HPF (Negative) 04/05/22 13:42 Urine Mucus Few /HPF 04/05/22 13:42 Urine Yeast (Budding) 3+ /HPF 04/05/22 13:42 Syphilis IgG/IgM Ab Nonreactive (NonReactive) 04/06/22 17:58 Hernadez/IV: Voiding Method Urinal Active Medications - Current Medications Current Medications: Generic Name Dose Route Start Last Admin Trade Name Freq PRN Reason Stop Dose Admin Acetaminophen 650 mg 04/05/22 13:34 Acetaminophen 325 Mg Tab PO Q4H PRN Pain, Mild (1-3) Albuterol 2.5 mg 04/05/22 13:34 Albuterol 2.5 Mg/3 Ml Nebu IH Q3HRT PRN Shortness Of Breath Atorvastatin Calcium 40 mg 04/05/22 22:00 04/06/22 21:36 Atorvastatin 40 Mg Tab PO 40 mg QHS MARILU Administration Bisacodyl 10 mg 04/05/22 13:34 Bisacodyl 10 Mg Rect Supp [place] QDAY PRN Constipation Hydromorphone HCl 0.5 mg 04/05/22 13:34 Hydromorphone 0.5 Mg/0.5 Ml Inj IV Q23H PRN Pain , Severe (7-10) Magnesium Hydroxide 30 ml 04/05/22 13:34 Magnesium Hydroxide (Mom) Oral Liqd Udc PO Q4H PRN Constipation Metoclopramide HCl 10 mg 04/05/22 13:34 Metoclopramide 10 Mg Tab PO Q6H PRN Nausea And Vomiting Ondansetron HCl 4 mg 04/05/22 13:34 Ondansetron 4 Mg/2 Ml Inj IV Q8H PRN Nausea And Vomiting Oxycodone/Acetaminophen 1 tab 04/05/22 13:34 Oxycodone /Acetaminophen 5-325mg Tab PO Q16H PRN Pain, Moderate (4-6) Promethazine HCl 25 mg 04/05/22 13:34 Promethazine 25 Mg Rect Supp [place] Q6H PRN Nausea And Vomiting Sodium Chloride 10 ml 04/05/22 13:34 04/05/22 22:26 Sodium Chloride 0.9% 10 Ml Flush Syringe IV 10 ml PRN PRN Administration LINE FLUSH
--- NOTE | 2022-04-07 11:46 | Magnetic Resonance Report ---
MRI THORACIC SPINE WITHOUT AND WITH CONTRAST INDICATION / CLINICAL INFORMATION: transverse myelitis, epidural abscess Patient motion, best possible exam, repeated scans.. TECHNIQUE: Multisequence, multiplanar images of the thoracic spine were obtained. Contrast dose report: Clairscan: 14 mL administered intravenously. COMPARISON: None available. FINDINGS: LIMITATIONS: Patient motion artifact is limiting factor on this examination. This is most problematic on the sagittal STIR sequence. ALIGNMENT: Normal alignment overall. VERTEBRAE:No significant foci of abnormal bone marrow signal intensity are identified. THORACIC INTERVERTEBRAL DISCS: Disc height and signal intensity are fairly well preserved throughout the thoracic region. VISUALIZED SPINAL CORD: On sagittal STIR images heterogeneous signal intensity is seen within the cor d. This sequence is marred by patient motion artifact. No indication of intrinsic cord lesion is seen on sagittal T2-weighted scans. DEGENERATIVE FINDINGS: Anterior osteophyte formation is observed throughout the thoracic region. Ther e is no indication of disc extrusion, central canal stenosis or significant neuroforaminal narrowing. PARASPINAL SOFT TISSUES: No significant abnormality. ADDITIONAL FINDINGS: Clinical history provided includes "epidural abscess". There is no indication of discitis, osteomyelitis or epidural abscess or epidural hematoma in the thoracic region. IMPRESSION: 1. No indication of intrinsic cord lesion or cord compression. 2. No indication of disc herniation or central canal stenosis. Signer Name: Chaz Tyler MD Signed: 04/07/2022 11:42 AM Workstation Name: [id number]
--- NOTE | 2022-04-07 12:03 | Magnetic Resonance Report ---
MR cervical spine wo/w con INDICATION / CLINICAL INFORMATION: 82 years Male; transverse myelitis; epidural abscess Patient motion, best possible exam, repeated sca ns . TECHNIQUE: Multisequence, multiplanar images of the cervical spine were obtained. COMPARISON: None available. FINDINGS: CRANIOCERVICAL JUNCTION:The motion significantly degrades image quality despite repeat imaging. Howev er, there is angulation of the C1 vertebrae with mild anterior subluxation. The associated a hypertro phic changes and ligamentum flavum hypertrophy result in spinal stenosis with moderate deformity of t he posterior cord. Additionally, there appears be mild increase T2-weighted and STIR signal within th e posterior cord at this level indicative of developing myelomalacia. ALIGNMENT: There is no further spondylolisthesis involving cervical spine. VERTEBRAE:There is multilevel disc space narrowing and endplate changes involving the cervical segmen ts. There is associated endplate edema centrally at C7-T1. VISUALIZED SPINAL CORD: There is slight increased signal within the cord at the C1-2 level as detaile d above. Otherwise, the visualized cord appears unremarkable. [id number] ANALYSIS: C2-3: The spondylosis and ligamentum flavum hypertrophy efface subarachnoid space with minimal encroa chment on the cord at. There is also notable motion artifact on the axial sequences that there appear s to be moderate right foraminal narrowing at this level. C3-4: There is no disc protrusion or central spinal stenosis. There is mild neural foraminal narrowin g bilaterally. C4-5: The central spondylosis slightly encroaches on the ventral cord. There is moderate neural from narrowing bilaterally. C5-6: The spondylosis effaces the subarachnoid space with minimal encroachment on the ventral cord. T here is mild to moderate foraminal narrowing bilaterally. C6-7: There is mild spondylosis without direct cord compression. There is mild foraminal narrowing bi laterally. C7-T1: There is no disc protrusion or significant stenosis. PARASPINAL SOFT TISSUES: No significant abnormality. ADDITIONAL FINDINGS: No epidural collections or definitive intradural enhancing lesions are appreciat ed. IMPRESSION: 1. The study is limited by motion. However, there is mild anterior subluxation of C1 with deformity o f the posterior cord and mild increased signal indicative of developing myelomalacia as detailed abov e. 2. There are not multilevel degenerative changes involving remaining cervical spine with spondylosis and neural from narrowing as detailed above. Signer Name: August Zavaleta MD Signed: 04/07/2022 11:59 AM Workstation Name: [id number]
[2022-04-07] MEDS: APIXABAN 5 MG TAB PO SCH ×2 (12:41→22:37)
[2022-04-07 14:05] LABS: Hematocrit 40.8 % (35.5-45.6); Hemoglobin 14.2 gm/dl (11.8-15.2); Mean Corpuscular HGB Conc 35 % (32-34); Mean Corpuscular Volume 91 fl (84-94); Platelet Count 361 K/mm3 (140-440); Red Blood Count 4.49 M/mm3 (3.65-5.03); Red Cell Distribution Width 12.4 % (13.2-15.2)
[2022-04-07 14:15] LABS: INR 1.04 (0.87-1.13); Partial Thromboplastin Time 31.2 Sec. (24.2-36.6)
[2022-04-07 14:51] LABS: Chol/HDL Ratio 3.06 %; HDL Cholesterol 33 mg/dL (40-59); LDL Cholesterol,Direct 57 mg/dL (50-130)
--- NOTE | 2022-04-08 10:14 | Discharge Summary ---
Providers - Providers Date of Admission: 04/05/22 13:35 Date of discharge: 04/08/22 Attending physician: JESSIKA OAKES 04/05/22 13:35 Occupational Therapy Evaluate and Treat [CONS] Routine Comment: Reason For Exam: Neuro deficits Physical Therapy Evaluation and Treat [CONS] Routine Comment: Reason For Exam: Neuro deficits Speech Therapy Evaluation and Treat [CONS] Routine Reason For Exam: swallow eval 04/06/22 09:05 Consult to Physician [CONS] Routine Comment: Consulting Provider: JESÚS SALINAS Physician Instructions: Reason For Exam: CVA 04/06/22 12:46 Consult to Physician [CONS] Routine Comment: Consulting Provider: MELISA DUKE Physician Instructions: Reason For Exam: DAYANA stenosis 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
--- NOTE | 2022-04-08 10:24 | Progress Note ---
Assessment and Plan Assessment and plan: 82 YO Male with Vascular Dementia, Cerebral Atherosclerosis, CaP, Atrial Fib not currently on therapeutic anticoagulation, HTN presents to ED for evaluation of progressive weakness over the past 1 month. Patient has experienced right- sided weakness with inability to ambulate without falling. Acute CVA Paroxysmal atrial fibrillation Hypertension Prostate cancer 04/06/2022. Follow-up echocardiogram and MRI. Neurology evaluation pending. PT/OT/ST. 04/07/2022. Neurology consulted and recommends MRI of brain. Continue Eliquis and statin therapy for paroxysmal atrial fibrillation and secondary prevention. PT recommends acute rehab but family wants to take patient home. pt/ot evaluation/monitoring for fall risk assesment especially in the setting of anticoagulation use. I have had discussion with PT to ensure safe discharge home 04/08/2022. Carotid ultrasound revealed 70% right ICA stenosis. Await Vascular Surgery eval. Imaging of the cervical and thoracic spine revealed mild anterior subluxation of C1 with deformity of the posterior cord and mild increased signal indicative of developing myelomalacia. There is not multilevel degenerative change involving remaining cervical spine with spondylosis and neural from narrowing. Otherwise, thoracic spine reveal no indication of cord lesion or compression or disc herniation or central canal stenosis. I discussed case with neurology who recommends that patient be transferred to a facility for neurosurgery evaluation. Await MRI. History Interval history: No new issues overnight Hospitalist Physical - Constitutional Vitals: Temp Pulse Resp BP Pulse Ox 97.8 F 91 H 15 123/75 96 04/08/22 08:16 04/08/22 08:16 04/08/22 03:47 04/08/22 08:16 04/08/22 08:16 General appearance: Present: mild distress - EENT Eyes: Present: PERRL, EOM intact ENT: hearing intact, clear oral mucosa, dentition normal - Neck Neck: Present: supple, normal ROM - Respiratory Respiratory effort: normal Respiratory: bilateral: CTA - Cardiovascular Rhythm: regular Heart Sounds: Present: S1 & S2. Absent: gallop, rub - Extremities Extremities: no ischemia, No edema, Full ROM - Abdominal General gastrointestinal: soft, non-tender, non-distended, normal bowel sounds - Integumentary Integumentary: Present: clear, warm, dry - Neurologic Neurologic: CNII-XII intact, moves all extremities HEART Score - HEART Score Troponin: Troponin T < 0.010 ng/mL (0.00-0.029) 04/05/22 11:34 Results - Labs CBC & Chem 7: 04/07/22 13:50 04/07/22 13:50 Labs: Laboratory Last Values WBC 9.9 K/mm3 (4.5-11.0) 04/07/22 13:50 RBC 4.49 M/mm3 (3.65-5.03) 04/07/22 13:50 Hgb 14.2 gm/dl (11.8-15.2) 04/07/22 13:50 Hct 40.8 % (35.5-45.6) 04/07/22 13:50 MCV 91 fl (84-94) 04/07/22 13:50 MCH 32 pg (28-32) 04/07/22 13:50 MCHC 35 % (32-34) H 04/07/22 13:50 RDW 12.4 % (13.2-15.2) L 04/07/22 13:50 Plt Count 361 K/mm3 (140-440) 04/07/22 13:50 Lymph % (Auto) 12.3 % (13.4-35.0) L 04/07/22 05:43 [place] % (Auto) 8.4 % (0.0-7.3) H 04/07/22 05:43 Eos % (Auto) 1.5 % (0.0-4.3) 04/07/22 05:43 Baso % (Auto) 0.3 % (0.0-1.8) 04/07/22 05:43 Lymph # (Auto) 1.3 K/mm3 (1.2-5.4) 04/07/22 05:43 [place] # (Auto) 0.9 K/mm3 (0.0-0.8) H 04/07/22 05:43 Eos # (Auto) 0.2 K/mm3 (0.0-0.4) 04/07/22 05:43 Baso # (Auto) 0.0 K/mm3 (0.0-0.1) 04/07/22 05:43 Seg Neutrophils % 77.5 % (40.0-70.0) H 04/07/22 05:43 Seg Neutrophils # 8.3 K/mm3 (1.8-7.7) H 04/07/22 05:43 PT 14.8 Sec. (12.2-14.9) 04/07/22 13:50 INR 1.04 (0.87-1.13) 04/07/22 13:50 APTT 31.2 Sec. (24.2-36.6) 04/07/22 13:50 Sodium 134 mmol/L (137-145) L 04/07/22 05:43 Potassium 4.0 mmol/L (3.6-5.0) 04/07/22 05:43 Chloride 97.5 mmol/L (98-107) L 04/07/22 05:43 Carbon Dioxide 26 mmol/L (22-30) 04/07/22 05:43 Anion Gap 15 mmol/L 04/07/22 05:43 BUN 14 mg/dL (9-20) 04/07/22 05:43 Creatinine 1.1 mg/dL (0.8-1.3) 04/07/22 13:50 Estimated GFR > 60 ml/min 04/07/22 13:50 BUN/Creatinine Ratio 12 % 04/07/22 05:43 Glucose 120 mg/dL (75-100) H 04/07/22 05:43 Calcium 8.9 mg/dL (8.4-10.2) 04/07/22 05:43 Total Bilirubin 0.80 mg/dL (0.1-1.2) 04/05/22 11:34 AST 129 units/L (5-40) H 04/05/22 11:34 ALT 81 units/L (7-56) H 04/05/22 11:34 Alkaline Phosphatase 154 units/L (35-129) H 04/05/22 11:34 Total Creatine Kinase 77 units/L (55-170) 04/05/22 11:34 CK-MB (CK-2) 1.1 ng/mL (0.0-4.0) 04/05/22 11:34 CK-MB (CK-2) Rel Index 1.4 (0-4) 04/05/22 11:34 Troponin T < 0.010 ng/mL (0.00-0.029) 04/05/22 11:34 Total Protein 7.4 g/dL (6.3-8.2) 04/05/22 11:34 Albumin 2.6 g/dL (3.9-5) L 04/05/22 11:34 Albumin/Globulin Ratio 0.5 % 04/05/22 11:34 Prealbumin 0.060 g/L (0.200-0.400) L 04/06/22 17:58 Triglycerides 61 mg/dL (2-149) 04/07/22 13:50 Cholesterol 101 mg/dL (50-199) 04/07/22 13:50 LDL Cholesterol Direct 57 mg/dL (50-130) 04/07/22 13:50 HDL Cholesterol 33 mg/dL (40-59) L 04/07/22 13:50 Cholesterol/HDL Ratio 3.06 % 04/07/22 13:50 Vitamin B12 1003 pg/mL (211-911) H 04/06/22 17:58 Folate 12.75 ng/mL (7.3-26.0) 04/06/22 17:58 TSH 2.440 mlU/mL (0.270-4.200) 04/06/22 17:58 Free T4 1.20 ng/dL (0.76-1.46) 04/05/22 11:34 Urine Color Yellow (Yellow) 04/05/22 13:42 Urine Turbidity Cloudy (Clear) 04/05/22 13:42 Urine pH 7.5 (5.0-7.0) H 04/05/22 13:42 Ur Specific [place] 1.010 (1.003-1.030) 04/05/22 13:42 Urine Protein 30 mg/dl mg/dL (Negative) 04/05/22 13:42 Urine Glucose (UA) Negative mg/dL (Negative) 04/05/22 13:42 Urine Ketones Negative mg/dL (Negative) 04/05/22 13:42 Urine Blood Trace (Negative) 04/05/22 13:42 Urine Nitrite Negative (Negative) 04/05/22 13:42 Ur Reducing Substances Not Reportable 04/05/22 13:42 Urine Bilirubin Small (Negative) 04/05/22 13:42 Urine Ictotest Not Reportable 04/05/22 13:42 Urine Urobilinogen 2.0 mg/dL (<2.0) 04/05/22 13:42 Ur Leukocyte Esterase Trace (Negative) 04/05/22 13:42 Urine WBC (Auto) 6.0 /HPF (0.0-6.0) 04/05/22 13:42 Urine RBC (Auto) 2.0 /HPF (0.0-6.0) 04/05/22 13:42 Urine Bacteria (Auto) 1+ /HPF (Negative) 04/05/22 13:42 Urine Mucus Few /HPF 04/05/22 13:42 Urine Yeast (Budding) 3+ /HPF 04/05/22 13:42 Syphilis IgG/IgM Ab Nonreactive (NonReactive) 04/06/22 17:58 Hernadez/IV: Voiding Method Urinal Active Medications - Current Medications Current Medications: Generic Name Dose Route Start Last Admin Trade Name Freq PRN Reason Stop Dose Admin Acetaminophen 650 mg 04/05/22 13:34 Acetaminophen 325 Mg Tab PO Q4H PRN Pain, Mild (1-3) Albuterol 2.5 mg 04/05/22 13:34 Albuterol 2.5 Mg/3 Ml Nebu IH Q3HRT PRN Shortness Of Breath Apixaban 5 mg 04/07/22 13:00 04/07/22 22:37 Apixaban 5 Mg Tab PO 5 mg Q12HR MARILU Administration Protocol Atorvastatin Calcium 40 mg 04/05/22 22:00 04/07/22 22:37 Atorvastatin 40 Mg Tab PO 40 mg QHS MARILU Administration Bisacodyl 10 mg 04/05/22 13:34 Bisacodyl 10 Mg Rect Supp ME QDAY PRN Constipation Hydromorphone HCl 0.5 mg 04/05/22 13:34 Hydromorphone 0.5 Mg/0.5 Ml Inj IV Q23H PRN Pain , Severe (7-10) Magnesium Hydroxide 30 ml 04/05/22 13:34 Magnesium Hydroxide (Mom) Oral Liqd Udc PO Q4H PRN Constipation Metoclopramide HCl 10 mg 04/05/22 13:34 Metoclopramide 10 Mg Tab PO Q6H PRN Nausea And Vomiting Ondansetron HCl 4 mg 04/05/22 13:34 Ondansetron 4 Mg/2 Ml Inj IV Q8H PRN Nausea And Vomiting Oxycodone/Acetaminophen 1 tab 04/05/22 13:34 04/07/22 22:39 Oxycodone /Acetaminophen 5-325mg Tab PO 1 tab Q16H PRN Administration Pain, Moderate (4-6) Promethazine HCl 25 mg 04/05/22 13:34 Promethazine 25 Mg Rect Supp ME Q6H PRN Nausea And Vomiting Sodium Chloride 10 ml 04/05/22 13:34 04/05/22 22:26 Sodium Chloride 0.9% 10 Ml Flush Syringe IV 10 ml PRN PRN Administration LINE FLUSH
--- NOTE | 2022-04-08 12:42 | Magnetic Resonance Report ---
MRI BRAIN WITHOUT AND WITH CONTRAST INDICATION / CLINICAL INFORMATION: stroke, infection, adem Patient motion, best possible scans, repeated scans.. TECHNIQUE: Multiplanar, multisequence MR images of the brain were obtained. Contrast dose report: MultiHance: 18 ml administered intravenously. COMPARISON: CTA neck 04/06/2022 and MRI cervical spine 04/07/2022. FINDINGS: BRAIN / INTRACRANIAL CONTENTS: Age-related parenchymal volume loss is demonstrated. Enlargement of th e cortical sulci and ventricular system is present. This is a prominent finding even given the patien t's stated age of 82 years. Periventricular and a few deep white matter hyperintensities are noted co nsistent with mild microvascular ischemic changes. Dilated perivascular spaces are noted in a bilater al basal ganglia and subinsular distribution. This is a manifestation of parenchymal volume loss. The re is no mass effect. No evidence of intracranial hemorrhage or extra-axial fluid collection is seen. There is no indication of remote cortical infarction. Diffusion weighted scans are negative. There i s no indication of acute ischemic injury. The brainstem and cerebellum have an unremarkable appearance. CRANIOCERVICAL JUNCTION: There is interruption of the posterior spinal laminar line. The posterior ar ch of C1 is located anterior to its expected position. This may be on a developmental basis. The cord is deformed posteriorly by the posterior arch of C1. Of the cord appears to be kinked. There is betty re central canal stenosis with decreased CSF signal intensity surrounding the cord at the atlantoaxia l junction. Comparison to MRI cervical spine reveals similar findings. Axial imaging was not obtained through this level on MRI brain or MRI cervical spine limiting evaluation somewhat. Axial imaging is obtained through the atlantoaxial junction on CTA neck dated 04/06/2022. 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 VASCULAR FLOW-VOIDS: Normal flow-voids are present within the major intracranial vessels. ORBITS: The orbits have an unremarkable appearance. SINUSES / MASTOIDS: There is no indication of inflammatory disease in the paranasal sinuses or mastoi d air cells. Following administration of intravenous contrast material enhancement of normal vascular structures i s demonstrated. No areas of abnormal contrast enhancement are identified. IMPRESSION: 1. Pronounced atrophy as described above. 2. 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 Signer Name: Chaz Tyler MD Signed: 04/08/2022 12:38 PM Workstation Name: [id number]
--- NOTE | 2022-04-08 13:30 | Progress Note ---
Assessment and Plan Patient undergoing evaluation for weakness predominantly on the right side with decreased mentation per family however per report. At time of examination, the patient appears to have stabilized with no lateralizing weakness visualized. T he patient's carotid stenosis does not appear to be related to his presenting symptoms. Would recommend that the patient initiate therapy with statin, antiplatelet therapy and hypertensive control. I the patient also has nonpalpable pedal pulses. We will obtain an arterial duplex for further eval uation. Subjective Date of service: 04/08/22 Principal diagnosis: Weakness, right-sided Interval history: Patient presents with a history of right-sided weakness. He underwent a carotid duplex which demonstrates 70% stenosis of his ICA on the right at the bulb which is discordant with the patient's symptoms. At time of examination, the patient has no lateral tongue deviation or other visualized strength deviation. Objective - Constitutional Vitals: Vital Signs - 12hr 04/08/22 04/08/22 03:47 08:16 Temperature 97.7 F 97.8 F Pulse Rate 77 91 H Respiratory 15 Rate Blood Pressure 100/69 123/75 O2 Sat by Pulse 96 96 Oximetry General appearance: Present: no acute distress - EENT ENT: hearing intact - Neck Neck: normal ROM - Respiratory Respiratory effort: normal Extremities: abnormal (Decreased pedal pulses) - Genitourinary Male genitourinary: deferred - Psychiatric Psychiatric: cooperative - Labs CBC & Chem 7: 04/07/22 13:50 04/07/22 13:50 Labs: Abnormal lab results 04/07/22 04/07/22 Range/Units 13:50 13:50 MCHC 35 H (32-34) % RDW 12.4 L (13.2-15.2) % HDL Cholesterol 33 L (40-59) mg/dL Medications & Allergies - Medications Allergies/Adverse Reactions: Allergies No Known Allergies Allergy (Verified 04/05/22 10:38) Active Medications: Generic Name Dose Route Start Last Admin Trade Name Freq PRN Reason Stop Dose Admin Acetaminophen 650 mg 04/05/22 13:34 Acetaminophen 325 Mg Tab PO Q4H PRN Pain, Mild (1-3) Albuterol 2.5 mg 04/05/22 13:34 Albuterol 2.5 Mg/3 Ml Nebu IH Q3HRT PRN Shortness Of Breath Apixaban 5 mg 04/07/22 13:00 04/07/22 22:37 Apixaban 5 Mg Tab PO 5 mg Q12HR MARILU Administration Protocol Atorvastatin Calcium 40 mg 04/05/22 22:00 04/07/22 22:37 Atorvastatin 40 Mg Tab PO 40 mg QHS MARILU Administration Bisacodyl 10 mg 04/05/22 13:34 Bisacodyl 10 Mg Rect Supp VA QDAY PRN Constipation Hydromorphone HCl 0.5 mg 04/05/22 13:34 Hydromorphone 0.5 Mg/0.5 Ml Inj IV Q23H PRN Pain , Severe (7-10) Magnesium Hydroxide 30 ml 04/05/22 13:34 Magnesium Hydroxide (Mom) Oral Liqd Udc PO Q4H PRN Constipation Metoclopramide HCl 10 mg 04/05/22 13:34 Metoclopramide 10 Mg Tab PO Q6H PRN Nausea And Vomiting Ondansetron HCl 4 mg 04/05/22 13:34 Ondansetron 4 Mg/2 Ml Inj IV Q8H PRN Nausea And Vomiting Oxycodone/Acetaminophen 1 tab 04/05/22 13:34 04/07/22 22:39 Oxycodone /Acetaminophen 5-325mg Tab PO 1 tab Q16H PRN Administration Pain, Moderate (4-6) Promethazine HCl 25 mg 04/05/22 13:34 Promethazine 25 Mg Rect Supp VA Q6H PRN Nausea And Vomiting Sodium Chloride 10 ml 04/05/22 13:34 04/05/22 22:26 Sodium Chloride 0.9% 10 Ml Flush Syringe IV 10 ml PRN PRN Administration LINE FLUSH HEART Score - HEART Score Troponin: Troponin T < 0.010 ng/mL (0.00-0.029) 04/05/22 11:34
[2022-04-08] MEDS: APIXABAN 5 MG TAB PO SCH ×2 (15:10→21:36)
--- NOTE | 2022-04-08 17:47 | Vascular Lab Report ---
DUPLEX DOPPLER LOWER EXTREMITY ARTERIAL, BILATERAL INDICATION / CLINICAL INFORMATION: PVD with claudication. TECHNIQUE: Arterial duplex examination of both lower extremities performed using B-mode, color flow a nd spectral Doppler assessment. FINDINGS: RIGHT: Scattered atherosclerotic plaques are noted. Common Femoral Artery: PSV 114 cm/sec. Triphasic waveform. Proximal SFA: PSV 126 cm/sec. Triphasic waveform. Mid SFA: PSV 84 cm/sec. Triphasic waveform. Distal SFA: PSV 101 cm/sec. Triphasic waveform. Popliteal Artery: PSV 75 cm/sec. Biphasic waveform. Posterior Tibial Artery: PSV 31 cm/sec. Monophasic waveform. Dorsalis Pedis Artery: PSV 21 cm/sec. Monophasic waveform. LEFT: Scattered atherosclerotic plaques. Common Femoral Artery: PSV 156 cm/sec. Triphasic waveform. Proximal SFA: PSV 117 cm/sec. Biphasic waveform. Mid SFA: PSV 116 cm/sec. Biphasic waveform. Distal SFA: PSV 113 cm/sec. Biphasic waveform. Popliteal Artery: PSV 80 cm/sec. Biphasic waveform. Posterior Tibial Artery: PSV 37 cm/sec. Biphasic waveform. Dorsalis Pedis Artery: PSV 13 cm/sec. Biphasic waveform. ADDITIONAL FINDINGS: None. IMPRESSION: 1. Monophasic waveforms in the right posterior tibial and dorsalis pedis arteries suggestive of signi ficant peripheral vascular disease. 2. Very slow flow is noted in the left anterior tibial and dorsalis pedis arteries though they have b iphasic waveforms. Doppler Waveform: - Triphasic is normal. - Biphasic is abnormal if clear transition from triphasic signal along vascular tree. - Monophasic is abnormal. Signer Name: Harish Dixon MD Signed: 04/08/2022 5:42 PM Workstation Name: [id number]
[2022-04-09 05:50] LABS: Hematocrit 40.1 % (35.5-45.6); Hemoglobin 12.9 gm/dl (11.8-15.2); Mean Corpuscular HGB Conc 32 % (32-34); Mean Corpuscular Volume 93 fl (84-94); Platelet Count 410 K/mm3 (140-440); Red Blood Count 4.32 M/mm3 (3.65-5.03); Red Cell Distribution Width 12.6 % (13.2-15.2)
[2022-04-09] MEDS: APIXABAN 5 MG TAB PO SCH (10:05)
--- NOTE | 2022-04-09 11:14 | Progress Note ---
Assessment and Plan Assessment and plan: 82 YO Male with Vascular Dementia, Cerebral Atherosclerosis, CaP, Atrial Fib not currently on therapeutic anticoagulation, HTN presents to ED for evaluation of progressive weakness over the past 1 month. Patient has experienced right- sided weakness with inability to ambulate without falling. Acute CVA Paroxysmal atrial fibrillation Hypertension Prostate cancer 04/06/2022. Follow-up echocardiogram and MRI. Neurology evaluation pending. PT/OT/ST. 04/07/2022. Neurology consulted and recommends MRI of brain. Continue Eliquis and statin therapy for paroxysmal atrial fibrillation and secondary prevention. PT recommends acute rehab but family wants to take patient home. pt/ot evaluation/monitoring for fall risk assesment especially in the setting of anticoagulation use. I have had discussion with PT to ensure safe discharge home 04/08/2022. Carotid ultrasound revealed 70% right ICA stenosis. Await Vascular Surgery eval. Imaging of the cervical and thoracic spine revealed mild anterior subluxation of C1 with deformity of the posterior cord and mild increased signal indicative of developing myelomalacia. There is not multilevel degenerative change involving remaining cervical spine with spondylosis and neural from narrowing. Otherwise, thoracic spine reveal no indication of cord lesion or compression or disc herniation or central canal stenosis. I discussed case with neurology who recommends that patient be transferred to a facility for neurosurgery evaluation. Await MRI. 04/09/2022. Vascular surgery recommends that the patient have therapy with statin, antiplatelet and hypertensive control. Patient has palpable pedal pulses. Lower extremity arterial Dopplers reveal peripheral vascular disease. MRI brain shows no acute CVA but pronounced atrophy. 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 Patient is on the wait list to be transferred to [place] for evaluation by neurosurgery. Cervical collar. I discussed with physical ther. History Interval history: No new issues overnight Hospitalist Physical - Constitutional Vitals: Temp Pulse Resp BP Pulse Ox 97.4 F L 93 H 18 103/65 98 04/09/22 08:33 04/09/22 08:33 04/09/22 08:33 04/09/22 08:33 04/09/22 08:33 General appearance: Present: no acute distress - EENT Eyes: Present: PERRL, EOM intact ENT: hearing intact, clear oral mucosa, dentition normal - Neck Neck: Present: supple, normal ROM - Respiratory Respiratory effort: normal Respiratory: bilateral: CTA - Cardiovascular Rhythm: regular Heart Sounds: Present: S1 & S2. Absent: gallop, rub - Extremities Extremities: no ischemia, No edema, Full ROM - Abdominal General gastrointestinal: soft, non-tender, non-distended, normal bowel sounds - Integumentary Integumentary: Present: clear, warm, dry - Neurologic Neurologic: CNII-XII intact, moves all extremities HEART Score - HEART Score Troponin: Troponin T < 0.010 ng/mL (0.00-0.029) 04/05/22 11:34 Results - Labs CBC & Chem 7: 04/09/22 05:16 04/07/22 13:50 Labs: Laboratory Last Values WBC 12.2 K/mm3 (4.5-11.0) H 04/09/22 05:16 RBC 4.32 M/mm3 (3.65-5.03) 04/09/22 05:16 Hgb 12.9 gm/dl (11.8-15.2) 04/09/22 05:16 Hct 40.1 % (35.5-45.6) 04/09/22 05:16 MCV 93 fl (84-94) 04/09/22 05:16 MCH 30 pg (28-32) 04/09/22 05:16 MCHC 32 % (32-34) 04/09/22 05:16 RDW 12.6 % (13.2-15.2) L 04/09/22 05:16 Plt Count 410 K/mm3 (140-440) 04/09/22 05:16 Lymph % (Auto) 12.3 % (13.4-35.0) L 04/07/22 05:43 [place] % (Auto) 8.4 % (0.0-7.3) H 04/07/22 05:43 Eos % (Auto) 1.5 % (0.0-4.3) 04/07/22 05:43 Baso % (Auto) 0.3 % (0.0-1.8) 04/07/22 05:43 Lymph # (Auto) 1.3 K/mm3 (1.2-5.4) 04/07/22 05:43 [place] # (Auto) 0.9 K/mm3 (0.0-0.8) H 04/07/22 05:43 Eos # (Auto) 0.2 K/mm3 (0.0-0.4) 04/07/22 05:43 Baso # (Auto) 0.0 K/mm3 (0.0-0.1) 04/07/22 05:43 Seg Neutrophils % 77.5 % (40.0-70.0) H 04/07/22 05:43 Seg Neutrophils # 8.3 K/mm3 (1.8-7.7) H 04/07/22 05:43 PT 14.8 Sec. (12.2-14.9) 04/07/22 13:50 INR 1.04 (0.87-1.13) 04/07/22 13:50 APTT 31.2 Sec. (24.2-36.6) 04/07/22 13:50 Sodium 134 mmol/L (137-145) L 04/07/22 05:43 Potassium 4.0 mmol/L (3.6-5.0) 04/07/22 05:43 Chloride 97.5 mmol/L (98-107) L 04/07/22 05:43 Carbon Dioxide 26 mmol/L (22-30) 04/07/22 05:43 Anion Gap 15 mmol/L 04/07/22 05:43 BUN 14 mg/dL (9-20) 04/07/22 05:43 Creatinine 1.1 mg/dL (0.8-1.3) 04/07/22 13:50 Estimated GFR > 60 ml/min 04/07/22 13:50 BUN/Creatinine Ratio 12 % 04/07/22 05:43 Glucose 120 mg/dL (75-100) H 04/07/22 05:43 Calcium 8.9 mg/dL (8.4-10.2) 04/07/22 05:43 Total Bilirubin 0.80 mg/dL (0.1-1.2) 04/05/22 11:34 AST 129 units/L (5-40) H 04/05/22 11:34 ALT 81 units/L (7-56) H 04/05/22 11:34 Alkaline Phosphatase 154 units/L (35-129) H 04/05/22 11:34 Total Creatine Kinase 77 units/L (55-170) 04/05/22 11:34 CK-MB (CK-2) 1.1 ng/mL (0.0-4.0) 04/05/22 11:34 CK-MB (CK-2) Rel Index 1.4 (0-4) 04/05/22 11:34 Troponin T < 0.010 ng/mL (0.00-0.029) 04/05/22 11:34 Total Protein 7.4 g/dL (6.3-8.2) 04/05/22 11:34 Albumin 2.6 g/dL (3.9-5) L 04/05/22 11:34 Albumin/Globulin Ratio 0.5 % 04/05/22 11:34 Prealbumin 0.060 g/L (0.200-0.400) L 04/06/22 17:58 Triglycerides 61 mg/dL (2-149) 04/07/22 13:50 Cholesterol 101 mg/dL (50-199) 04/07/22 13:50 LDL Cholesterol Direct 57 mg/dL (50-130) 04/07/22 13:50 HDL Cholesterol 33 mg/dL (40-59) L 04/07/22 13:50 Cholesterol/HDL Ratio 3.06 % 04/07/22 13:50 Vitamin B12 1003 pg/mL (211-911) H 04/06/22 17:58 Folate 12.75 ng/mL (7.3-26.0) 04/06/22 17:58 TSH 2.440 mlU/mL (0.270-4.200) 04/06/22 17:58 Free T4 1.20 ng/dL (0.76-1.46) 04/05/22 11:34 Urine Color Yellow (Yellow) 04/05/22 13:42 Urine Turbidity Cloudy (Clear) 04/05/22 13:42 Urine pH 7.5 (5.0-7.0) H 04/05/22 13:42 Ur Specific [place] 1.010 (1.003-1.030) 04/05/22 13:42 Urine Protein 30 mg/dl mg/dL (Negative) 04/05/22 13:42 Urine Glucose (UA) Negative mg/dL (Negative) 04/05/22 13:42 Urine Ketones Negative mg/dL (Negative) 04/05/22 13:42 Urine Blood Trace (Negative) 04/05/22 13:42 Urine Nitrite Negative (Negative) 04/05/22 13:42 Ur Reducing Substances Not Reportable 04/05/22 13:42 Urine Bilirubin Small (Negative) 04/05/22 13:42 Urine Ictotest Not Reportable 04/05/22 13:42 Urine Urobilinogen 2.0 mg/dL (<2.0) 04/05/22 13:42 Ur Leukocyte Esterase Trace (Negative) 04/05/22 13:42 Urine WBC (Auto) 6.0 /HPF (0.0-6.0) 04/05/22 13:42 Urine RBC (Auto) 2.0 /HPF (0.0-6.0) 04/05/22 13:42 Urine Bacteria (Auto) 1+ /HPF (Negative) 04/05/22 13:42 Urine Mucus Few /HPF 04/05/22 13:42 Urine Yeast (Budding) 3+ /HPF 04/05/22 13:42 Syphilis IgG/IgM Ab Nonreactive (NonReactive) 04/06/22 17:58 [place]adez/IV: Voiding Method Urinal Active Medications - Current Medications Current Medications: Generic Name Dose Route Start Last Admin Trade Name Freq PRN Reason Stop Dose Admin Acetaminophen 650 mg 04/05/22 13:34 Acetaminophen 325 Mg Tab PO Q4H PRN Pain, Mild (1-3) Albuterol 2.5 mg 04/05/22 13:34 Albuterol 2.5 Mg/3 Ml Nebu IH Q3HRT PRN Shortness Of Breath Apixaban 5 mg 04/07/22 13:00 04/09/22 10:05 Apixaban 5 Mg Tab PO 5 mg Q12HR MARILU Administration Protocol Atorvastatin Calcium 40 mg 04/05/22 22:00 04/08/22 21:36 Atorvastatin 40 Mg Tab PO 40 mg QHS MARILU Administration Bisacodyl 10 mg 04/05/22 13:34 Bisacodyl 10 Mg Rect Supp MO QDAY PRN Constipation Hydromorphone HCl 0.5 mg 04/05/22 13:34 Hydromorphone 0.5 Mg/0.5 Ml Inj IV Q23H PRN Pain , Severe (7-10) Magnesium Hydroxide 30 ml 04/05/22 13:34 Magnesium Hydroxide (Mom) Oral Liqd Udc PO Q4H PRN Constipation Metoclopramide HCl 10 mg 04/05/22 13:34 Metoclopramide 10 Mg Tab PO Q6H PRN Nausea And Vomiting Ondansetron HCl 4 mg 04/05/22 13:34 Ondansetron 4 Mg/2 Ml Inj IV Q8H PRN Nausea And Vomiting Oxycodone/Acetaminophen 1 tab 04/05/22 13:34 04/07/22 22:39 Oxycodone /Acetaminophen 5-325mg Tab PO 1 tab Q16H PRN Administration Pain, Moderate (4-6) Promethazine HCl 25 mg 04/05/22 13:34 Promethazine 25 Mg Rect Supp MO Q6H PRN Nausea And Vomiting Sodium Chloride 10 ml 04/05/22 13:34 04/05/22 22:26 Sodium Chloride 0.9% 10 Ml Flush Syringe IV 10 ml PRN PRN Administration LINE FLUSH
--- NOTE | 2022-04-09 13:04 | Event Note ---
Date: 04/09/22 MRI of the brain is negative for acute CVA. Okay to stop the anticoagulation. Patient should be on antiplatelet therapy with Plavix 75 mg p.o. daily and a statin with atorvastatin 40 mg p.o. daily. No need for vascular surgery intervention.
[2022-04-09 16:39] VITALS: BP 110/70
--- NOTE | 2022-04-11 11:46 | Discharge Summary ---
Providers - Providers Date of Admission: 04/05/22 13:35 Date of discharge: 04/09/22 Attending physician: JESSIKA OAKES 04/05/22 13:35 Occupational Therapy Evaluate and Treat [CONS] Routine Comment: Reason For Exam: Neuro deficits Physical Therapy Evaluation and Treat [CONS] Routine Comment: Reason For Exam: Neuro deficits Speech Therapy Evaluation and Treat [CONS] Routine Reason For Exam: swallow eval 04/06/22 09:05 Consult to Physician [CONS] Routine Comment: Consulting Provider: JESÚS SALINAS Physician Instructions: Reason For Exam: CVA 04/06/22 12:46 Consult to Physician [CONS] Routine Comment: Consulting Provider: MELISA DUKE Physician Instructions: Reason For Exam: DAYANA stenosis Primary care physician: ZONE MAINTENANCE TECHNICIAN Hospitalization Reason for admission: right sided weakness Condition: Fair Hospital course: 82 YO Male with Vascular Dementia, Cerebral Atherosclerosis, CaP, Atrial Fib not currently on therapeutic anticoagulation, HTN presents to ED for evaluation of progressive weakness over the past 1 month. Patient has experienced right- sided weakness with inability to ambulate without falling. The patient was initially admitted with diagnosis of acute CVA, paroxysmal atrial fibrillation, hypertension and prostate cancer Hospital course: 04/06/2022. Follow-up echocardiogram and MRI. Neurology evaluation pending. PT/OT/ST. 04/07/2022. Neurology consulted and recommends MRI of brain. Continue Eliquis and statin therapy for paroxysmal atrial fibrillation and secondary prevention. PT recommends acute rehab but family wants to take patient home. pt/ot evaluation/monitoring for fall risk assesment especially in the setting of anticoagulation use. I have had discussion with PT to ensure safe discharge home 04/08/2022. Carotid ultrasound revealed 70% right ICA stenosis. Await Vascular Surgery eval. Imaging of the cervical and thoracic spine revealed mild anterior subluxation of C1 with deformity of the posterior cord and mild increased signal indicative of developing myelomalacia. There is not multilevel degene rative change involving remaining cervical spine with spondylosis and neural from narrowing. Otherwise, thoracic spine reveal no indication of cord lesion or compression or disc herniation or central canal stenosis. I discussed case with neurology and neurosurgery who recommended that patient be transferred to a facility for neurosurgery evaluation. Await MRI. 04/09/2022. Vascular surgery recommends that the patient have therapy with statin, antiplatelet and hypertensive control. Patient has palpable pedal pulses. Lower extremity arterial Dopplers reveal peripheral vascular disease. MRI brain shows no acute CVA but pronounced atrophy. 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 Patient is on the wait list to be transferred to [place] for evaluation by neurosurgery. Cervical collar. I discussed with director physical. Later in the evening of 04/09/2022. The nurse reports that he spoke with patient's family. The family stated that patient will not continue to stay in hospital awaiting transfer to [place]. Son states they are leaving AMA and driving patient to [place] to seek treatment. Notified patient and son that this was very dangerous and would not recommend leaving AMA at this time. Patient and son state they still want to leave. IV removed and monitor returned to tele room. Discharge diagnosis: C1 subluxation, myelomalacia, severe spinal canal stenosis, peripheral vascular disease, paroxysmal atrial fibrillation, hypertension and prostate cancer. CVA ruled out Disposition: 07 LEFT AGAINST MEDICAL ADVICE Final Discharge Diagnosis (Prints w/discharge instructions): C1 subluxation, myelomalacia, severe spinal canal stenosis, peripheral vascular disease, paroxysmal atrial fibrillation, hypertension and prostate cancer. CVA ruled out Core Measure Documentation - Palliative Care Palliative Care/ Comfort Measures: Not Applicable - Core Measures Any of the following diagnoses?: none Exam - Physical Exam Narrative exam: Unable to complete, patient left AMA - Constitutional Vitals: Temp Pulse Resp BP Pulse Ox 98.0 F 111 H 18 110/70 94 04/09/22 16:31 04/09/22 16:31 04/09/22 08:33 04/09/22 16:31 04/09/22 16:31 Plan Follow up with: PRIMARY MD MAGNUS [Primary Care Provider] - 3-5 Days Forms: AMA Form
[2022-04-21 07:36] LABS: Vitamin D, 25-OH, D2 SEE SCANNED RESULT
== END 2022-04-09 18:37 | disposition left against medical advice (07) | DRG 309 ==
LOC: ED 10:24 → 4A 13:35
PROVIDERS: ADMIT Internal Medicine; ATTEND Hospitalist
DX: I48.0 Paroxysmal atrial fibrillation (principal); G37.3 Acute transverse myelitis in demyelinating disease of central nervous system; S13.110A Subluxation of C0/C1 cervical vertebrae, initial encounter; G95.89 Other specified diseases of spinal cord; M48.02 Spinal stenosis, cervical region; C61 Malignant neoplasm of prostate; I10 Essential (primary) hypertension; F01.50 Vascular dementia, unspecified severity, without behavioral disturbance, psychotic disturbance, mood disturbance, and anxiety; I67.2 Cerebral atherosclerosis; R26.81 Unsteadiness on feet; Z53.29 Procedure and treatment not carried out because of patient's decision for other reasons; I73.9 Peripheral vascular disease, unspecified; M43.5X2 Other recurrent vertebral dislocation, cervical region; Z82.49 Family history of ischemic heart disease and other diseases of the circulatory system; Z87.891 Personal history of nicotine dependence; I65.21 Occlusion and stenosis of right carotid artery
CPT/HCPCS: 36415; 70450; 70496; 70498; 70553; 71045; 72156; 72157; 80048; 80053; 80061; 81001; 82306; 82525; 82550; 82553; 82565; 82607; 82747; 84134; 84439; 84443; 84484; 85025; 85027; 85610; 85730; 86592; 93005; 93306; 93880; 93925; G0378; A9575; C8929; Q9967